=== PATIENT | male | born 1975 | race American Indian/Alaskan Native ===

== ENCOUNTER 2020-01-08 10:49 | Emergency (ER) | payer BC, OTHER ==
[2020-01-08] MEDS ORDERED: Lidocaine 1% with EPINEPHrine 1:100,000 20 ML MDV INJECT ONE (11:03)
--- NOTE | 2020-01-08 11:03 | EDM.PDOC ---
ED HPI GENERAL MEDICAL PROBLEM - General Chief Complaint: Laceration Stated Complaint: BLEED THROUGH STITCHES Time Seen by Provider: 01/08/20 10:50 Source of Information: Reports: Patient History Limitations: Reports: No Limitations - History of Present Illness INITIAL COMMENTS - FREE TEXT/NARRATIVE: HISTORY AND PHYSICAL: History of present illness: Patient is a 44-year-old male who presents to the emergency room with complaints of spontaneous bleeding from an incision site in which he had a ganglion cyst removed on 01/05/2020 in [place]. Patient has a fiberglass splint around his left wrist and hand to protect the site which was placed immediately after surgery. He states he was getting in the shower this morning and he left his arm out of the shower when he started to feel a warm sensation on his wrist and palm. He noticed a moderate amount of bleeding and presented to the emergency room. He denies any injury, trauma or falls. Patient denies any fever, chills, headache, change in vision, syncope or near syncope. Denies any chest pain, back pain, shortness of breath or cough. Denies any abdominal pain, nausea, vomiting, diarrhea, constipation or dysuria. Has not noted any blood in urine or stool. Patient has been eating and drinking appropriately. *Right hand dominant Review of systems: As per history of present illness and below otherwise all systems reviewed and negative. Past medical history: As per history of present illness and as reviewed below otherwise noncontributory. Surgical history: As per history of present illness and as reviewed below otherwise noncontributory. Social history: See social history for further information Family history: As per history of present illness and as reviewed below otherwise noncontributory. Physical exam: General: Well-developed and well-nourished 44-year-old male. Alert and oriented. Nontoxic-appearing and in no acute distress. HEENT: Atraumatic, normocephalic, pupils equal and reactive bilaterally, negative for conjunctival pallor or scleral icterus, mucous membranes moist, neck nontender, trachea midline. No drooling or trismus noted. No meningeal signs. No hot potato voice noted. Lungs: Clear to auscultation, breath sounds equal bilaterally. Heart: S1S2, regular rate and rhythm without overt murmur Abdomen: Soft, nondistended, nontender. Skin: Linear incision along radial aspect of left inner wrist, arterial bleeding noted from site- controlled with direct pressure. Bruising noted to upper forearm. NO surrounding erythema at incision site. Otherwise intact, warm , dry. No lesions or rashes noted. Extremities: Recent surgery of left wrist. He moves all extremities per self without difficulty or deficits. Neurovascular unremarkable. Neuro: Awake, alert, oriented. Cranial nerves II through XII unremarkable. Cerebellum unremarkable. Motor and sensory unremarkable throughout. Exam nonfocal. Notes: The fiberglass splint was cut off and the incision is noted to the inner wrist with arterial bleed. Direct pressure has been applied. Upon patient arrival both Dr. Cavazos (in surgery) and Dr. Barrett were consulted on this case and she would like this patient to be referred to orthopedics. Dr. Lan, orthopedics on-call was consulted on this case and he informed me to apply a direct4 pressure dressing and he would need to go back to [place] to his surgeon. 1120: Dr Evans/Dr Rangel were attempted to be reached - unsuccessful after 20- 30 minute wait time. 1145: Dr Farmer, [facility] ED, was consulted on this case. He is agreeable to accepting this patient. He did recommend that I see if the bleeding would stop after having had pressure on it for a period of time. I did have a pressure dressing on for approximately 1 hour with no bleeding through the bandage. I did gently remove the bandage and there was uncontrolled bleeding once again. The bandage was re-applied, ED physician was notified and I will transfer this patient. I did inform the patient that he would likely be seen and treated in the emergency room possibly the OR but he would likely have a quick turnaround to be discharged to home. Patient is aware and said that his would come with him. We did discuss ambulance transport versus going by private vehicle and at this time I think it would be beneficial that he have some supervision due to the bleeding. Patient consents to transfer. CBC is unremarkable. Prior to transfer patient continues to have +CMS to distal finger tips, denies any numbness, tingling or paraesthesia. Dressing intact without breakthrough bleeding. Diagnostics: CBC Therapeutics: SL, Morphine Impression: Post-operative arterial bleed at incision site Plan: To [facility] via ground ambulance - Dr Farmer (ER MD) accepted this patient. Definitive disposition and diagnosis as appropriate pending reevaluation and review of above. Onset: Today Duration: Minutes: Location: Reports: Upper Extremity, Left - Related Data Allergies Allergy/AdvReac Type Severity Reaction Status Date / Time ciprofloxacin Allergy Itching Verified 01/08/20 11:01 Home Meds: Home Meds amLODIPine Besylate/Benazepril [Amlodipine-Benazepril 10-40 MG] 1 cap PO DAILY 07/04/18 [History] Citalopram Hydrobromide [Celexa] 40 mg PO DAILY 07/05/18 [History] Past Medical History Cardiovascular History: Reports: Hypertension Respiratory History: Reports: None Gastrointestinal History: Reports: None, Diverticulosis Other Gastrointestinal History: Recurrent diverticulitis Genitourinary History: Reports: Renal Calculus Musculoskeletal History: Reports: None Neurological History: Reports: None Psychiatric History: Reports: Anxiety Endocrine/Metabolic History: Reports: None Hematologic History: Reports: None Immunologic History: Reports: None Oncologic (Cancer) History: Reports: None Dermatologic History: Reports: None - Infectious Disease History Infectious Disease History: Reports: Chicken Pox - Past Surgical History Head Surgeries/Procedures: Reports: None HEENT Surgical History: Reports: Adenoidectomy GI Surgical History: Reports: Appendectomy Social & Family History - Family History Family Medical History: Noncontributory Other GI Family History: Mother has hx of C-Diff Other Oncologic Family History: Mother has hx of rib CA - Caffeine Use Caffeine Use: Reports: Coffee ED ROS GENERAL - Review of Systems Review Of Systems: Comprehensive ROS is negative, except as noted in HPI. ED EXAM, SKIN/RASH Exam: See Below (See dictation) Course - Vital Signs Last Recorded V/S: Last Vital Signs Temp 96.3 F L 01/08/20 10:59 Pulse 80 01/08/20 11:36 Resp 18 01/08/20 11:36 BP 136/103 H 01/08/20 11:36 Pulse Ox 92 L 01/08/20 11:36 - Orders/Labs/Meds Orders: Active Orders 24 hr Category Date Time Status Communication Order [RC] STAT Care 01/08/20 11:26 Active Lactated Ringers [Ringers, Lactated] 1,000 ml Med 01/08/20 11:30 Active IV ASDIRECTED Sodium Chloride 0.9% [Saline Flush] Med 01/08/20 11:26 Active 10 ml FLUSH ASDIRECTED PRN Sodium Chloride 0.9% [Saline Flush] Med 01/08/20 11:26 Active 2.5 ml FLUSH ASDIRECTED PRN Saline Lock Insert [OM.PC] Stat Oth 01/08/20 11:26 Ordered Medication Orders Lactated Ringer's (Ringers, Lactated) 1,000 mls @ 100 mls/hr IV ASDIRECTED MESSI Last Admin: 01/08/20 11:34 Dose: 100 mls/hr Sodium Chloride (Saline Flush) 10 ml FLUSH ASDIRECTED PRN PRN Reason: Keep Vein Open Last Admin: 01/08/20 11:31 Dose: 10 ml Sodium Chloride (Saline Flush) 2.5 ml FLUSH ASDIRECTED PRN PRN Reason: Keep Vein Open Labs: Laboratory Tests 01/08/20 Range/Units 11:14 WBC 8.64 (4.0-11.0) K/uL RBC 4.83 (4.50-5.90) M/uL Hgb 14.8 (13.0-17.0) g/dL Hct 44.9 (38.0-50.0) % MCV 93.0 (80.0-98.0) fL MCH 30.6 (27.0-32.0) pg MCHC 33.0 (31.0-37.0) g/dL RDW Std Deviation 44.4 (28.0-62.0) fl RDW Coeff of Rae 13 (11.0-15.0) % Plt Count 307 (150-400) K/uL MPV 10.60 (7.40-12.00) fL Neut % (Auto) 68.4 (48.0-80.0) % Lymph % (Auto) 21.6 (16.0-40.0) % Clarke % (Auto) 5.8 (0.0-15.0) % Eos % (Auto) 3.7 (0.0-7.0) % Baso % (Auto) 0.5 (0.0-1.5) % Neut # (Auto) 5.9 H (1.4-5.7) K/uL Lymph # (Auto) 1.9 (0.6-2.4) K/uL Clarke # (Auto) 0.5 (0.0-0.8) K/uL Eos # (Auto) 0.3 (0.0-0.7) K/uL Baso # (Auto) 0.0 (0.0-0.1) K/uL Nucleated RBC % 0.0 /100WBC Nucleated RBCs # 0 K/uL Meds: Medications Generic Name Dose Route Start Last Admin Trade Name Freq PRN Reason Stop Dose Admin Lactated Ringer's 1,000 mls @ 100 mls/hr 01/08/20 11:30 01/08/20 11:34 Ringers, Lactated IV 100 mls/hr ASDIRECTED MESSI Administration Sodium Chloride 10 ml 01/08/20 11:26 01/08/20 11:31 Saline Flush FLUSH 10 ml ASDIRECTED PRN Administration Keep Vein Open Sodium Chloride 2.5 ml 01/08/20 11:26 Saline Flush FLUSH ASDIRECTED PRN Keep Vein Open Discontinued Medications Generic Name Dose Route Start Last Admin Trade Name Freq PRN Reason Stop Dose Admin Lidocaine/Epinephrine 20 ml 01/08/20 11:03 Xylocaine 1% With Epinephrine 1:100,000 INJECT 01/08/20 11:04 ONETIME ONE Lidocaine/Epinephrine Confirm 01/08/20 11:05 Xylocaine 1% With Epinephrine 1:100,000 Administered 01/08/20 11:06 Dose 20 ml .ROUTE .STK-MED ONE Morphine Sulfate 4 mg 01/08/20 11:24 01/08/20 11:31 Morphine IVPUSH 01/08/20 11:25 4 mg ONETIME ONE Administration Departure - Departure Time of Disposition: 11:53 Disposition: DC/Tfer to Acute Hospital 02 Clinical Impression: Postoperative bleeding from incision - Discharge Information Referrals: PCP,None [Primary Care Provider] - Forms: ED Department Discharge Sepsis Event Note - Focused Exam Vital Signs: Vital Signs Temp Pulse Resp BP Pulse Ox 01/08/20 11:36 80 18 136/103 H 92 L 01/08/20 10:59 96.3 F L 97 16 124/82 93 L Date Exam was Performed: 01/08/20 Time Exam was Performed: 11:59 - My Orders Last 24 Hours: My Active Orders 01/08/20 11:26 Communication Order [RC] STAT Sodium Chloride 0.9% [Saline Flush] 10 ml FLUSH ASDIRECTED PRN Sodium Chloride 0.9% [Saline Flush] 2.5 ml FLUSH ASDIRECTED PRN Saline Lock Insert [OM.PC] Stat 01/08/20 11:30 Lactated Ringers [Ringers, Lactated] 1,000 ml IV ASDIRECTED - Assessment/Plan Last 24 Hours: My Active Orders 01/08/20 11:26 Communication Order [RC] STAT Sodium Chloride 0.9% [Saline Flush] 10 ml FLUSH ASDIRECTED PRN Sodium Chloride 0.9% [Saline Flush] 2.5 ml FLUSH ASDIRECTED PRN Saline Lock Insert [OM.PC] Stat 01/08/20 11:30 Lactated Ringers [Ringers, Lactated] 1,000 ml IV ASDIRECTED
[2020-01-08] MEDS ORDERED: Lidocaine 1% with EPINEPHrine 1:100,000 20 ML MDV ONE (11:05)
[2020-01-08] MEDS ORDERED: Morphine 4 MG/ML Syringe IVPUSH ONE (11:24)
[2020-01-08] MEDS ORDERED: Sodium Chloride 0.9% 2.5 ML Syringe FLUSH PRN (11:26)
[2020-01-08] MEDS ORDERED: Sodium Chloride 0.9% 10 ML Syringe FLUSH PRN (11:26)
[2020-01-08] MEDS ORDERED: Lactated Ringers 1,000 ML IV SCH (11:30)
== END 2020-01-08 13:15 ==
LOC: MW.ED 10:49
DX: L76.22 Postprocedural hemorrhage of skin and subcutaneous tissue following other procedure (principal); Z79.899 Other long term (current) drug therapy; F41.9 Anxiety disorder, unspecified; Z88.1 Allergy status to other antibiotic agents
CPT/HCPCS: 36415; 85025; 96361; 96374; 99284; J2270; J7120; 99283

== ENCOUNTER 2022-08-19 16:23 | Emergency (ER) | payer SELFPAY ==
[2022-08-19] MEDS ORDERED: Lidocaine 1% 5 ML VIAL INJECT ONE (18:28)
[2022-08-19] MEDS ORDERED: traMADol 50 MG Tab PO ONE (18:43)
[2022-08-19] MEDS ORDERED: Ketorolac 30 MG/ML SDV IM ONE (18:43)
== END 2022-08-19 19:34 | disposition home or self-care (01) ==
LOC: MW.ED 16:23
DX: M10.9 Gout, unspecified (principal); I10 Essential (primary) hypertension; Z88.1 Allergy status to other antibiotic agents
CPT/HCPCS: 20610; 87070; 87075; 87205; 89050; 89060; 96372; 99283; A9270; J1885; J3490

== ENCOUNTER 2022-10-17 00:52 | Emergency (ER) | payer BC, OTHER | END 2022-10-17 02:28 | disposition home or self-care (01) | LOC: MW.ED 00:52 | DX: S82.431A Displaced oblique fracture of shaft of right fibula, initial encounter for closed fracture (principal); I10 Essential (primary) hypertension; Z88.1 Allergy status to other antibiotic agents; Z79.899 Other long term (current) drug therapy; W00.0XXA Fall on same level due to ice and snow, initial encounter | CPT/HCPCS: 29515; 73600-26-RT; 73600-RT; 99283; 99283-25 ==

== ENCOUNTER 2022-10-21 10:30 | Day surgery (SDC) | payer BC, OTHER ==
[~2022-10-21 10:30] MED LIST: Lactated Ringers 1,000 ML IV SCH; ceFAZolin 2 GM in Premix Bag 1 BAG IV SCH
[2022-10-21] MEDS ORDERED: Ondansetron 4 MG/2 ML SDV IVPUSH PRN (11:04)
[2022-10-21] MEDS ORDERED: Metoclopramide 10 MG/2 ML SDV IVPUSH PRN (11:04)
[2022-10-21] MEDS ORDERED: HYDROmorphone 1 MG/ML Syringe IVPUSH PRN (11:04)
[2022-10-21] MEDS ORDERED: Naloxone 0.4 MG/ML SDV IVPUSH PRN (11:04)
[2022-10-21] MEDS ORDERED: Morphine 2 MG/ML SYRINGE IVPUSH PRN (11:04)
[2022-10-21] MEDS ORDERED: Albuterol 0.083% 2.5 MG/3 ML Neb Soln NEB PRN (11:04)
[2022-10-21] MEDS ORDERED: fentaNYL 50 MCG/ML SDV IVPUSH PRN (11:04)
[2022-10-21] MEDS ORDERED: Midazolam 1 MG/ML 2 ML SDV ONE (11:20)
[2022-10-21] MEDS ORDERED: fentaNYL 100 MCG/2 ML SDV ONE (11:20)
[2022-10-21] MEDS ORDERED: Lidocaine 2% 5 ML SDV ONE (11:21)
[2022-10-21] MEDS ORDERED: Ropivacaine 0.5% 5 MG/ML 30 ML SDV ONE (11:22)
[2022-10-21] MEDS ORDERED: Dexmedetomidine 200 MCG/2 ML SDV ONE (11:22)
[2022-10-21] MEDS ORDERED: Phenylephrine 1% 10 MG/ML SDV ONE ×2 (11:31→13:07)
[2022-10-21] MEDS ORDERED: Ondansetron 4 MG/2 ML SDV ONE (11:43)
[2022-10-21] MEDS ORDERED: Sugammadex Sodium 200 MG/2 ML VIAL ONE (11:43)
[2022-10-21] MEDS ORDERED: Dexamethasone 4 MG/ML 5 ML MDV ONE (11:43)
[2022-10-21] MEDS ORDERED: Propofol 200 MG/20 ML SDV ONE (12:26)
[2022-10-21] MEDS ORDERED: ceFAZolin 2 GM Vial ONE (12:33)
== END 2022-10-21 15:55 | disposition home or self-care (01) ==
LOC: MW.SDS 10:30
PROVIDERS: ATTEND Orthopaedic Surgery
DX: S82.841A Displaced bimalleolar fracture of right lower leg, initial encounter for closed fracture (principal); S93.431A Sprain of tibiofibular ligament of right ankle, initial encounter; I10 Essential (primary) hypertension; M10.9 Gout, unspecified; Z88.1 Allergy status to other antibiotic agents; Z79.899 Other long term (current) drug therapy; W01.0XXA Fall on same level from slipping, tripping and stumbling without subsequent striking against object, initial encounter
CPT/HCPCS: 27814; 27829; 64445; 64447; 76000; J0690; J1100; J2250; J2370; J2405; J2704; J2795; J3010; J7120; J3490

== ENCOUNTER 2023-12-20 01:42 | Emergency (ER) | payer BC ==
[2023-12-20] MEDS: Dexamethasone 4 MG/ML SDV IVPUSH ONE (02:13)
[2023-12-20] MEDS: Sodium Chloride 0.9% 1,000 ML IV ONE (02:13)
[2023-12-20] MEDS: Sodium Chloride 0.9% 2.5 ML Syringe FLUSH PRN (02:13)
[2023-12-20] MEDS: Sodium Chloride 0.9% 10 ML Syringe FLUSH PRN (02:13)
[2023-12-20] MEDS: Metoclopramide 10 MG/2 ML SDV IVPUSH ONE (02:14)
[2023-12-20] MEDS: Ketorolac 30 MG/ML SDV IVPUSH ONE (02:14)
[2023-12-20] MEDS: diphenhydrAMINE 50 MG/ML SDV IVPUSH ONE (02:14)
[2023-12-20 02:33] LABS: BASOPHILS ABSOLUTE AUTO 0.07 K/uL (0.00-0.20); BASOPHILS PERCENT AUTO 0.7 % (0.0-1.0); EOSINOPHILS ABSOLUTE AUTO 0.44 K/uL (0.00-0.45); EOSINOPHILS PERCENT AUTO 4.2 % (0.0-6.0); HEMATOCRIT 43.1 % (42.0-52.0); IMMATURE GRAN ABSOLUTE AUTO 0.09 K/uL (0.00-0.05); IMMATURE GRAN PERCENT AUTO 0.9 % (0.0-0.4); LYMPHOCYTES ABSOLUTE AUTO 2.79 K/uL (1.00-4.80); LYMPHOCYTES PERCENT AUTO 26.4 % (24.0-44.0); MEAN CORPUSCULAR HEMOGLOBIN 31.4 pg (28.0-32.0); MEAN CORPUSCULAR HGB CONC 34.8 g/dL (32.0-36.0); MEAN CORPUSCULAR VOLUME 90.2 fL (83.0-99.0); MONOCYTES ABSOLUTE AUTO 0.81 K/uL (0.00-0.80); MONOCYTES PERCENT AUTO 7.7 % (0.0-8.0); NEUTROPHILS ABSOLUTE AUTO 6.36 K/uL (1.80-7.70); NEUTROPHILS PERCENT AUTO 60.1 % (41.0-71.0); PLATELET COUNT,PLT 302 K/uL (150-400); RED BLOOD CELL COUNT 4.78 M/uL (4.52-5.90); WHITE BLOOD CELL COUNT,WBC 10.56 K/uL (3.9-11.3)
[2023-12-20 02:50] LABS: CARBON DIOXIDE,CO2 29.1 mmol/L (21.0-32.0); CREATININE 1.1 mg/dL (0.8-1.3); EST CRCL DRUG DOSING (CG) 75.72 mL/min; POTASSIUM,K 3.9 mmol/L (3.5-5.1)
== END 2023-12-20 04:03 | disposition home or self-care (01) ==
LOC: MW.ED 01:42
DX: R51.9 Headache, unspecified (principal); I10 Essential (primary) hypertension; E66.9 Obesity, unspecified; Z88.1 Allergy status to other antibiotic agents; Z79.899 Other long term (current) drug therapy; Z86.19 Personal history of other infectious and parasitic diseases; Z68.35 Body mass index [BMI] 35.0-35.9, adult
CPT/HCPCS: 36415; 80048; 85025; 96361; 96374; 96375; 99284; J1100; J1200; J1885; J2765; J3490; J7030

== ENCOUNTER 2024-04-26 06:41 | Emergency (ER) | payer BC ==
[2024-04-26] MEDS: Sodium Chloride 0.9% 1,000 ML IV ONE (07:36)
[2024-04-26] MEDS: Ketorolac 30 MG/ML SDV IVPUSH ONE (07:37)
[2024-04-26] MEDS: Famotidine 20 MG/2 ML SDV IVPUSH ONE (07:37)
[2024-04-26] MEDS: diphenhydrAMINE 50 MG/ML SDV IVPUSH ONE (07:38)
[2024-04-26] MEDS: Metoclopramide 10 MG/2 ML SDV IVPUSH ONE (07:38)
[2024-04-26 07:48] LABS: BASOPHILS ABSOLUTE AUTO 0.05 K/uL (0.00-0.20); BASOPHILS PERCENT AUTO 0.5 % (0.0-1.0); EOSINOPHILS ABSOLUTE AUTO 0.37 K/uL (0.00-0.45); HEMATOCRIT 45.7 % (42.0-52.0); HEMOGLOBIN 15.7 g/dL (14.0-18.0); IMMATURE GRAN ABSOLUTE AUTO 0.05 K/uL (0.00-0.05); IMMATURE GRAN PERCENT AUTO 0.5 % (0.0-0.4); LYMPHOCYTES ABSOLUTE AUTO 1.64 K/uL (1.00-4.80); LYMPHOCYTES PERCENT AUTO 17.8 % (24.0-44.0); MEAN CORPUSCULAR HEMOGLOBIN 30.5 pg (28.0-32.0); MEAN CORPUSCULAR HGB CONC 34.4 g/dL (32.0-36.0); MEAN CORPUSCULAR VOLUME 88.9 fL (83.0-99.0); MEAN PLATELET VOLUME 9.9 fL (9.4-12.4); MONOCYTES PERCENT AUTO 6.5 % (0.0-8.0); NEUTROPHILS ABSOLUTE AUTO 6.51 K/uL (1.80-7.70); NEUTROPHILS PERCENT AUTO 70.7 % (41.0-71.0); PLATELET COUNT,PLT 265 K/uL (150-400); RED BLOOD CELL COUNT 5.14 M/uL (4.52-5.90); WHITE BLOOD CELL COUNT,WBC 9.22 K/uL (3.9-11.3)
[2024-04-26 08:24] LABS: A/G RATIO 1.4 (0.9-1.6); ALBUMIN 3.8 g/dL (3.4-5.0); BILIRUBIN TOTAL 0.6 mg/dL (0.2-1.0); CALCIUM 8.7 mg/dL (8.5-10.1); CARBON DIOXIDE,CO2 26.3 mmol/L (21.0-32.0); EST CRCL DRUG DOSING (CG) 83.29 mL/min; POTASSIUM,K 3.8 mmol/L (3.5-5.1); PROTEIN TOTAL,TP 6.5 g/dL (6.4-8.2)
[2024-04-26 09:21] LABS: APPEARANCE,URINE CLEAR; BILIRUBIN,URINE NEGATIVE (NEGATIVE); COLOR,URINE YELLOW; GLUCOSE,URINE NEGATIVE (NEGATIVE); KETONES,URINE NEGATIVE (NEGATIVE); LEUKOCYTE ESTERASE,URINE NEGATIVE (NEGATIVE); NITRITE,URINE NEGATIVE (NEGATIVE); OCCULT BLOOD,URINE NEGATIVE (NEGATIVE); PH,URINE 7.5 (5.0-8.0); PROTEIN,URINE NEGATIVE (NEGATIVE); UROBILINOGEN,URINE 0.2 EU/dL (<2.0)
== END 2024-04-26 10:28 | disposition home or self-care (01) ==
LOC: MW.ED 06:41
DX: R51.9 Headache, unspecified (principal); R10.30 Lower abdominal pain, unspecified; I10 Essential (primary) hypertension; E66.9 Obesity, unspecified; Z90.49 Acquired absence of other specified parts of digestive tract; Z79.899 Other long term (current) drug therapy; Z88.1 Allergy status to other antibiotic agents; Z68.34 Body mass index [BMI] 34.0-34.9, adult
CPT/HCPCS: 36415; 80053; 81003; 83690; 84484; 85025; 93005; 96361; 96374; 96375; 99284; J1200; J1885; J2765; J3490; J7030

== ENCOUNTER 2024-09-22 09:05 | Day surgery (SDC) | payer OTHER, BC ==
[2024-09-22] MEDS ORDERED: propofoL 500 MG/50 ML 50 ML ONE (09:21)
[2024-09-22] MEDS: Lactated Ringers 1,000 ML IV SCH (09:27)
[2024-09-22] MEDS ORDERED: Lidocaine 2% 5 ML SDV ONE (09:43)
== END 2024-09-22 10:50 | disposition home or self-care (01) ==
LOC: MW.SDS 09:05
PROVIDERS: ATTEND Surgery
DX: Z12.11 Encounter for screening for malignant neoplasm of colon (principal); K57.30 Diverticulosis of large intestine without perforation or abscess without bleeding; K21.9 Gastro-esophageal reflux disease without esophagitis; I10 Essential (primary) hypertension; F41.9 Anxiety disorder, unspecified; Z79.899 Other long term (current) drug therapy; Z88.8 Allergy status to other drugs, medicaments and biological substances
CPT/HCPCS: 45380; J2003; J2704; J7120; 00811